=== PATIENT | male | born 1960 | race Two or more races ===

== ENCOUNTER 2022-06-16 21:35 | Emergency (ER) | payer MEDICAID, OTHER ==
[~2022-06-16] VITALS: Ht 177.8 cm; Wt 89.3 kg
[~2022-06-16 21:35] MED LIST: SIMV10TA97 MT
[2022-06-16 21:42] VITALS: BP 134/87
[2022-06-17 00:16] LABS: BASOPHILS % 0.4 % (0.0-2.0); EOSINOPHILS % 3.5 % (0.0-5.0); HEMATOCRIT. 43.4 % (42.0-52.0); HEMOGLOBIN. 14.6 g/dL (14.0-18.0); LYMPHOCYTES % 40.9 % (20.0-50.0); MEAN CORPUSCULAR HEMOGLOBIN 31.6 pg (28.0-32.0); MEAN CORPUSCULAR VOLUME 93.9 fL (80.0-94.0); MEAN PLATELET VOLUME 8.4 fl (7.4-10.4); MONOCYTES % 9.8 % (2.0-8.0); NEUTROPHILS % 45.4 % (40.0-76.0); PLATELET 107 x1000/uL (130-400); RED BLOOD CELL COUNT 4.62 mill/uL (4.7-6.1)
[2022-06-17 00:23] LABS: INR 1.1; PROTHROMBIN TIME 11.4 sec (9.6-11.0)
== END 2022-06-17 01:57 | disposition home or self-care (01) ==
LOC: ER 21:47
DX: S50.12XA Contusion of left forearm, initial encounter (principal); D69.6 Thrombocytopenia, unspecified; I10 Essential (primary) hypertension; W22.03XA Walked into furniture, initial encounter; Y93.89 Activity, other specified; Y92.018 Other place in single-family (private) house as the place of occurrence of the external cause
CPT/HCPCS: 36415; 82962; 85025; 99283

== ENCOUNTER 2022-08-22 16:17 | Emergency (ER) | payer OTHER ==
[~2022-08-22] VITALS: Ht 167.6 cm; Wt 82.0 kg
[2022-08-22 20:29] LABS: BASOPHILS % 0.5 % (0.0-2.0); EOSINOPHILS % 2.4 % (0.0-5.0); HEMATOCRIT. 41.2 % (42.0-52.0); HEMOGLOBIN. 14.1 g/dL (14.0-18.0); LYMPHOCYTES % 29.9 % (20.0-50.0); MEAN CORPUSCULAR HEMOGLOBIN 30.7 pg (28.0-32.0); MEAN CORPUSCULAR VOLUME 89.6 fL (80.0-94.0); MEAN PLATELET VOLUME 7.9 fl (7.4-10.4); MONOCYTES % 5.7 % (2.0-8.0); NEUTROPHILS % 61.5 % (40.0-76.0); PLATELET 116 x1000/uL (130-400); RED CELL DISTRIBUTION WIDTH 13.9 % (11.6-14.6)
[2022-08-22 20:34] LABS: CHLORIDE 104 mEq/L (98-107)
[2022-08-22 21:42] VITALS: BP 129/80
== END 2022-08-22 21:20 | disposition home or self-care (01) ==
LOC: ER 16:17
DX: I10 Essential (primary) hypertension (principal); E11.9 Type 2 diabetes mellitus without complications
CPT/HCPCS: 36415; 80048; 84484; 85025; 93005; 99285

== ENCOUNTER 2022-09-07 04:18 | Emergency (ER) | payer OTHER ==
[~2022-09-07] VITALS: Ht 182.9 cm; Wt 85.8 kg
[2022-09-07 04:37] VITALS: BP 134/78
[2022-09-07 06:00] LABS: BASOPHILS % 0.6 % (0.0-2.0); EOSINOPHILS % 3.5 % (0.0-5.0); HEMATOCRIT. 40.9 % (42.0-52.0); HEMOGLOBIN. 13.9 g/dL (14.0-18.0); LYMPHOCYTES % 40.3 % (20.0-50.0); MEAN CORPUSCULAR HEMOGLOBIN 31.2 pg (28.0-32.0); MEAN CORPUSCULAR VOLUME 91.9 fL (80.0-94.0); MEAN PLATELET VOLUME 8.5 fl (7.4-10.4); MONOCYTES % 8.4 % (2.0-8.0); NEUTROPHILS % 47.2 % (40.0-76.0); PLATELET 136 x1000/uL (130-400); RED BLOOD CELL COUNT 4.45 mill/uL (4.7-6.1); RED CELL DISTRIBUTION WIDTH 13.9 % (11.6-14.6)
[2022-09-07 06:12] LABS: CHLORIDE 107 mEq/L (98-107)
[2022-09-07 06:13] LABS: INR 1.1; PARTIAL THROMBOPLASTIN TIME 29.9 sec (23.4-31.0); PROTHROMBIN TIME 11.4 sec (9.6-11.0)
== END 2022-09-07 11:23 | disposition home or self-care (01) ==
LOC: ER 04:18
DX: R07.9 Chest pain, unspecified (principal); I10 Essential (primary) hypertension
CPT/HCPCS: 36415; 71045; 80053; 84484; 85025; 93005; 99285

== ENCOUNTER 2022-11-23 08:46 | Emergency (ER) | payer OTHER ==
[~2022-11-23] VITALS: Ht 177.8 cm; Wt 87.0 kg
[2022-11-23] MEDS ORDERED: SODIUM CHLORIDE 0.9% 1,000 ML IV ONE (10:45)
[2022-11-23] MEDS ORDERED: KETOROLAC 30MG/ML VIAL IV STA (10:45)
[2022-11-23 11:33] LABS: BASOPHILS % 0.9 % (0.0-2.0); EOSINOPHILS % 1.1 % (0.0-5.0); HEMATOCRIT. 42.9 % (42.0-52.0); HEMOGLOBIN. 14.8 g/dL (14.0-18.0); LYMPHOCYTES % 47.7 % (20.0-50.0); MEAN CORPUSCULAR HEMOGLOBIN 29.9 pg (28.0-32.0); MEAN CORPUSCULAR VOLUME 86.8 fL (80.0-94.0); MEAN PLATELET VOLUME 7.8 fl (7.4-10.4); MONOCYTES % 7.6 % (2.0-8.0); NEUTROPHILS % 42.7 % (40.0-76.0); PLATELET 95 x1000/uL (130-400); RED BLOOD CELL COUNT 4.94 mill/uL (4.7-6.1)
[2022-11-23 11:34] VITALS: BP 164/92
[2022-11-23 11:42] LABS: CHLORIDE 105 mEq/L (98-107)
[2022-11-23 11:55] LABS: CLARITY URINE CLEAR (CLEAR); COLOR URINE YELLOW (YELLOW); KETONES URINE NEGATIVE (NEGATIVE); LEUKOCYTE ESTERASE URINE NEGATIVE (NEGATIVE); NITRITE URINE NEGATIVE (NEGATIVE); OCCULT BLOOD URINE NEGATIVE (NEGATIVE); PH URINE 6.5 (4.5-8.0); PROTEIN URINE NEGATIVE (NEGATIVE); SPECIFIC GRAVITY URINE 1.016 (1.005-1.030); UROBILINOGEN URINE 0.2 E.U./dL (0.2-1.0)
== END 2022-11-23 18:59 | disposition home or self-care (01) ==
LOC: ER 09:17
DX: R51.9 Headache, unspecified (principal); R53.1 Weakness; E86.0 Dehydration; I10 Essential (primary) hypertension
CPT/HCPCS: 36415; 71045; 80053; 80320; 81003; 82962; 84484; 85025; 93005; 96361; 96374; 99285; J1885; J7030; Z7610; G0480

== ENCOUNTER 2023-02-17 14:10 | Emergency (ER) | payer OTHER ==
[~2023-02-17] VITALS: Ht 180.3 cm; Wt 91.0 kg
[2023-02-17 14:45] VITALS: BP 158/82; PULSE 95; RESP 18; O2SAT 97
[2023-02-17 15:01] VITALS: TEMP 99.5
[2023-02-17] MEDS ORDERED: ACETAMINOPHEN 325MG TABLET PO STA (15:01)
[2023-02-17 16:02] LABS: BASOPHILS % 0.5 % (0.0-2.0); EOSINOPHILS % 0.3 % (0.0-5.0); HEMATOCRIT. 40.3 % (42.0-52.0); HEMOGLOBIN. 13.9 g/dL (14.0-18.0); LYMPHOCYTES % 17.3 % (20.0-50.0); MEAN CORPUSCULAR HEMOGLOBIN 30.6 pg (28.0-32.0); MEAN CORPUSCULAR VOLUME 88.6 fL (80.0-94.0); MEAN PLATELET VOLUME 7.7 fl (7.4-10.4); MONOCYTES % 8.5 % (2.0-8.0); NEUTROPHILS % 73.4 % (40.0-76.0); PLATELET 97 x1000/uL (130-400); RED BLOOD CELL COUNT 4.55 mill/uL (4.7-6.1); RED CELL DISTRIBUTION WIDTH 14.6 % (11.6-14.6)
[2023-02-17 16:08] LABS: PROTHROMBIN TIME 11.1 sec (9.6-11.0)
[2023-02-17 16:25] LABS: CHLORIDE 96 mEq/L (98-107)
== END 2023-02-17 17:20 | disposition home or self-care (01) ==
LOC: ER 14:10
DX: R53.1 Weakness (principal); R05.9 Cough, unspecified; I10 Essential (primary) hypertension
CPT/HCPCS: 36415; 71045; 80053; 85025; 99284

== ENCOUNTER 2023-11-10 04:00 | Emergency (ER) | payer OTHER ==
[~2023-11-10] VITALS: Ht 182.9 cm; Wt 87.0 kg
[2023-11-10 04:29] VITALS: O2SAT 98
[2023-11-10] MEDS ORDERED: T3 PO (07:29)
[2023-11-10] MEDS: ACETAMINOPHEN 325MG TABLET PO ONE (07:30)
[2023-11-10 07:42] VITALS: BP 157/62; PULSE 66; RESP 16; TEMP 98.1
== END 2023-11-10 07:50 | disposition home or self-care (01) ==
LOC: ER 04:00
DX: S22.31XA Fracture of one rib, right side, initial encounter for closed fracture (principal); E11.9 Type 2 diabetes mellitus without complications; I10 Essential (primary) hypertension; W18.39XA Other fall on same level, initial encounter; Y93.89 Activity, other specified; Y92.89 Other specified places as the place of occurrence of the external cause; Y99.8 Other external cause status
CPT/HCPCS: 71101; 99283

== ENCOUNTER 2023-12-07 00:22 | Emergency (ER) | payer OTHER ==
[~2023-12-07] VITALS: Ht 182.9 cm; Wt 84.0 kg
[~2023-12-07 00:22] MED LIST changes: +T3 PO
[2023-12-07 00:38] VITALS: BP 110/71; PULSE 80; RESP 16; O2SAT 99
[2023-12-07] MEDS ORDERED: IBUP-2029 MT (01:22)
== END 2023-12-07 02:02 | disposition home or self-care (01) ==
LOC: ER 00:31
DX: M25.511 Pain in right shoulder (principal); M25.521 Pain in right elbow
CPT/HCPCS: 73030; 73080; 99284

== ENCOUNTER 2024-04-13 14:18 | Emergency (ER) | payer OTHER ==
[~2024-04-13] VITALS: Ht 182.9 cm; Wt 82.6 kg
[~2024-04-13 14:18] MED LIST changes: +IBUP-2029 MT
[2024-04-13 14:30] VITALS: O2SAT 98
[2024-04-13 18:04] LABS: BASOPHILS % 0.3 % (0.0-2.0); EOSINOPHILS % 2.3 % (0.0-5.0); HEMATOCRIT. 40.6 % (42.0-52.0); HEMOGLOBIN. 13.5 g/dL (14.0-18.0); LYMPHOCYTES % 26.6 % (20.0-50.0); MEAN CORPUSCULAR HEMOGLOBIN 31.8 pg (28.0-32.0); MEAN CORPUSCULAR HGB CONC 33.4 g/dL (31.0-37.0); MEAN CORPUSCULAR VOLUME 95.1 fL (80.0-94.0); MEAN PLATELET VOLUME 8.8 fl (7.4-10.4); NEUTROPHILS % 61.8 % (40.0-76.0); PLATELET 89 x1000/uL (130-400); RED BLOOD CELL COUNT 4.27 mill/uL (4.7-6.1); RED CELL DISTRIBUTION WIDTH 14.8 % (11.6-14.6); WHITE BLOOD COUNT 3.1 x1000/uL (4.5-11.0)
[2024-04-13 18:11] LABS: CARBON DIOXIDE 26 mEq/L (21-32); CHLORIDE 104 mEq/L (98-107); POTASSIUM 3.4 mEq/L (3.5-5.1); SODIUM 135 mEq/L (136-145)
[2024-04-13 18:12] LABS: CALCIUM 9.5 mg/dL (8.7-10.4)
[2024-04-13 18:14] LABS: PARTIAL THROMBOPLASTIN TIME 26.9 sec (23.4-31.0); PROTHROMBIN TIME 11.2 sec (9.6-11.0)
[2024-04-13 18:16] LABS: CREATININE 0.9 mg/dL (0.6-1.3)
[2024-04-13 18:17] LABS: GLUCOSE 100 mg/dL (70-105); UREA NITROGEN BLOOD 10 mg/dL (9-23)
[2024-04-13 18:18] LABS: ALANINE AMINOTRANSFERASE 34 IU/L (10-49); ALBUMIN 4.7 g/dL (3.2-4.8); ASPARTATE AMINOTRANSFERASE 97 IU/L (<34)
[2024-04-13 18:19] LABS: BILIRUBIN DIRECT 0.4 mg/dL (<=3.0); BILIRUBIN TOTAL 1.3 mg/dL (0.1-1.0); PROTEIN TOTAL 7.9 g/dL (6.0-8.3)
[2024-04-13 18:44] LABS: ETHANOL BLOOD < 10 mg/dL (<10)
[2024-04-13 20:00] VITALS: BP 159/82; PULSE 77; RESP 20; TEMP 36.83628; O2SAT 100
== END 2024-04-14 01:33 | disposition home or self-care (01) ==
LOC: ER 14:18
DX: D69.6 Thrombocytopenia, unspecified (principal); S40.022A Contusion of left upper arm, initial encounter; X58.XXXA Exposure to other specified factors, initial encounter; Y93.89 Activity, other specified; Y92.89 Other specified places as the place of occurrence of the external cause; Y99.8 Other external cause status
CPT/HCPCS: 36415; 80048; 80076; 80320; 85025; 86850; 86900; 93005; 99284; G0480

== ENCOUNTER 2025-03-24 10:54 | Emergency (ER) | payer OTHER ==
[~2025-03-24] VITALS: Ht 172.7 cm; Wt 75.0 kg
[2025-03-24 11:00] VITALS: O2SAT 97
[2025-03-24 11:11] VITALS: BP 134/84; PULSE 86; RESP 18; TEMP 37.2; O2SAT 99
== END 2025-03-24 12:18 | disposition left against medical advice (07) ==
LOC: ER 10:54
DX: R42 Dizziness and giddiness (principal); H53.8 Other visual disturbances; Z53.21 Procedure and treatment not carried out due to patient leaving prior to being seen by health care provider
CPT/HCPCS: 93005

== ENCOUNTER 2025-03-24 12:31 | Emergency (ER) | payer OTHER ==
[~2025-03-24] VITALS: Ht 172.7 cm; Wt 77.0 kg
[2025-03-24 12:59] VITALS: TEMP 37.1; O2SAT 100
[2025-03-24 13:55] LABS: BASOPHILS % 0.8 % (0.0-2.0); EOSINOPHILS % 1.7 % (0.0-5.0); HEMATOCRIT. 31.3 % (42.0-52.0); HEMOGLOBIN. 10.8 g/dL (14.0-18.0); LYMPHOCYTES % 26.5 % (20.0-50.0); MEAN PLATELET VOLUME 7.3 fl (7.4-10.4); MONOCYTES % 9.7 % (2.0-8.0); NEUTROPHILS % 61.3 % (40.0-76.0); PLATELET 378 x1000/uL (130-400); RED BLOOD CELL COUNT 3.50 mill/uL (4.7-6.1); RED CELL DISTRIBUTION WIDTH 18.1 % (11.6-14.6)
[2025-03-24 14:12] LABS: CREATININE 1.0 mg/dL (0.6-1.3); UREA NITROGEN BLOOD 19 mg/dL (9-23)
[2025-03-24 18:23] VITALS: BP 169/92; PULSE 63; RESP 12; O2SAT 99
== END 2025-03-24 18:34 | disposition home or self-care (01) ==
LOC: ER 12:31
DX: S00.83XA Contusion of other part of head, initial encounter (principal); R42 Dizziness and giddiness; D64.9 Anemia, unspecified; W19.XXXA Unspecified fall, initial encounter; Y93.89 Activity, other specified; Y92.89 Other specified places as the place of occurrence of the external cause; Y99.8 Other external cause status
CPT/HCPCS: 80048; 85025; 36415; 99283; Z7610